=== PATIENT | male | born 1965 | race Caucasian/White ===

== ENCOUNTER 2020-06-12 10:30 | Inpatient (IN) ==
[2020-06-12] MEDS ORDERED: methylPREDNISolone SOD SUC 40 MG/1 ML VIAL IV STA (11:12)
[2020-06-12] MEDS ORDERED: ALBUTEROL/IPRATROPIUM 3 ML NEB RESP TX STA (11:12)
[2020-06-12] MEDS ORDERED: cefTRIAXone 1,000 MG in SODIUM CHLORIDE 0.9% 100 ML IV STA (11:30)
[2020-06-12] MEDS ORDERED: cefTRIAXone 1,000 MG VIAL ONE (11:31)
[2020-06-12 11:36] LABS: Basophils # 0.1 10*3/uL (0.0-0.2); Basophils % 0.3 % (0.0-0.8); Eosinophils # 0.1 10*3/uL (0.0-0.87); Eosinophils % 0.4 % (0.00-10.9); Hematocrit 46.6 VOL% (42.0-52.0); Hemoglobin 15.5 GM/DL (14.0-18.0); Immature Granulocytes Absolute 0.21 #; Lymphocytes # 2.1 10*3/uL (1.4-4.0); Lymphocytes % 9.6 % (21.2-54.2); Mean Corpuscular HGB Conc 33.3 GM/DL (32-36); Mean Corpuscular Volume 94.3 FL (87-102); Mean Platelet Volume 8.5 FL (9.6-12.0); Monocytes % 8.3 % (1.7-12.7); Neutrophils % 80.4 % (38.7-73.9); Platelet Count 418 T/CUMM (130-400); Red Blood Count 4.94 MC/CUMM (3.8-5.5); Red Cell Distribution Width 12.8 % (9.3-17.3); White Blood Count 21.8 T/CUMM (4-12)
[2020-06-12 11:57] LABS: Band Neutrophils 1 % (0-10); Eosinophils 1 % (0-10); Lymphocytes 10 % (20-55); Platelet Estimate Adequate; Segmented Neutrophils 78 % (50-85); Total Cells Counted 100
[2020-06-12 11:59] LABS: Albumin 2.9 G/DL (3.4-5.0); Bilirubin,Total 0.6 MG/DL (0.2-1.0); Calcium 9.6 MG/DL (8.5-10.1); Osmolality,Calculated 265.4 MOS/KG (273-304); Potassium 3.8 MMOL/L (3.5-5.1); Total Protein 8.9 G/DL (6.4-8.2)
[2020-06-12] MEDS ORDERED: AZITHROMYCIN 250 MG TABLET PO STA (12:38)
[2020-06-12] MEDS ORDERED: hydrALAZINE 20 MG/1 ML VIAL IV PRN (14:03)
[2020-06-12] MEDS ORDERED: DEXTROSE 50% 25 GM/50 ML VIAL IV PRN (14:03)
[2020-06-12] MEDS ORDERED: ACETAMINOPHEN 325 MG TABLET PO PRN (14:03)
[2020-06-12] MEDS ORDERED: GLUCAGON 1 MG VIAL IM PRN (14:03)
[2020-06-12] MEDS ORDERED: ONDANSETRON 4 MG/2 ML VIAL IV PRN (14:03)
[2020-06-12 14:20] LABS: Ferritin 258.1 ng/ml (26-388)
[2020-06-12] MEDS ORDERED: NICOTINE 14 MG/24 HR PATCH TRANSDERM PRN (14:47)
[2020-06-12 15:02] LABS: VLDL CHOLESTEROL 21.6 MG/DL
[2020-06-12 15:11] LABS: Risk Ratio 5.27; Thyroid Stimulating Hormone 1.19 uIU/ml (0.358-3.74)
[2020-06-12] MEDS: SODIUM CHLORIDE 0.9% 1,000 ML IV SCH (15:20)
[2020-06-12] MEDS: ENOXAPARIN 40 MG/0.4 ML SYRINGE SUBCUT SCH (17:20)
[2020-06-12 17:25] VITALS: BP 135/87
[2020-06-12] MEDS ORDERED: ALBUTEROL/IPRATROPIUM 3 ML NEB RESP TX SCH (19:00)
[2020-06-13] MEDS: SODIUM CHLORIDE 0.9% 1,000 ML IV SCH ×3 (03:09→11:50)
[2020-06-13 04:41] LABS: Basophils % 0.2 % (0.0-0.8); Hemoglobin 14.8 GM/DL (14.0-18.0); Immature Granulocytes % 1.6 %; Immature Granulocytes Absolute 0.25 #; Lymphocytes # 2.4 10*3/uL (1.4-4.0); Lymphocytes % 15.1 % (21.2-54.2); Mean Corpuscular HGB Conc 32.9 GM/DL (32-36); Mean Corpuscular Volume 94.7 FL (87-102); Mean Platelet Volume 8.5 FL (9.6-12.0); Monocytes % 7.4 % (1.7-12.7); Neutrophils % 75.7 % (38.7-73.9); Platelet Count 441 T/CUMM (130-400); Red Blood Count 4.75 MC/CUMM (3.8-5.5); Red Cell Distribution Width 12.7 % (9.3-17.3); White Blood Count 15.9 T/CUMM (4-12)
[2020-06-13 05:06] LABS: Calcium 9.2 MG/DL (8.5-10.1); Osmolality,Calculated 273.8 MOS/KG (273-304); Potassium 4.4 MMOL/L (3.5-5.1)
[2020-06-13] MEDS: PANTOPRAZOLE 40 MG TABLET PO SCH (08:11)
[2020-06-13] MEDS: ALBUTEROL INHALER 18 GM INH SCH ×4 (08:38→18:01)
[2020-06-13] MEDS: methylPREDNISolone SOD SUC 40 MG/1 ML VIAL IV SCH ×2 (09:45→16:16)
[2020-06-13] MEDS: cefTRIAXone 1,000 MG in SYRINGE 1 EACH IV SCH (13:10)
[2020-06-13] MEDS: AZITHROMYCIN INJ 500 MG in SODIUM CHLORIDE 0.9% 250 ML IV SCH (13:39)
[2020-06-13] MEDS: ENOXAPARIN 40 MG/0.4 ML SYRINGE SUBCUT SCH (15:11)
[2020-06-14] MEDS: methylPREDNISolone SOD SUC 40 MG/1 ML VIAL IV SCH ×3 (00:26→17:28)
[2020-06-14] MEDS: ALBUTEROL INHALER 18 GM INH SCH ×4 (00:26→18:30)
[2020-06-14 05:06] LABS: Basophils % 0.2 % (0.0-0.8); Hematocrit 42.5 VOL% (42.0-52.0); Hemoglobin 14.3 GM/DL (14.0-18.0); Immature Granulocytes % 1.5 %; Immature Granulocytes Absolute 0.21 #; Lymphocytes # 1.6 10*3/uL (1.4-4.0); Lymphocytes % 11.5 % (21.2-54.2); Mean Corpuscular HGB Conc 33.6 GM/DL (32-36); Mean Corpuscular Volume 94.2 FL (87-102); Mean Platelet Volume 8.8 FL (9.6-12.0); Monocytes % 2.3 % (1.7-12.7); Neutrophils % 84.5 % (38.7-73.9); Platelet Count 449 T/CUMM (130-400); Red Blood Count 4.51 MC/CUMM (3.8-5.5); Red Cell Distribution Width 12.5 % (9.3-17.3); White Blood Count 13.7 T/CUMM (4-12)
[2020-06-14 05:42] LABS: Calcium 8.7 MG/DL (8.5-10.1); Potassium 4.8 MMOL/L (3.5-5.1)
[2020-06-14 05:53] LABS: Alanine Aminotransferase 30 U/L (16-61); Albumin 2.5 G/DL (3.4-5.0); Alkaline Phosphatase 111 U/L (45-117); Aspartate Amino Transferase 31 U/L (0-37); Bilirubin,Total < 0.39 MG/DL (0.2-1.0); Blood Urea Nitrogen 18 MG/DL (7-18); Calcium 8.8 MG/DL (8.5-10.1); Carbon Dioxide 27 MMOL/L (21-32); Estimated Glom Filtration Rate 107 ML/MIN; Glucose 123 MG/DL (74-106); Potassium 5.2 MMOL/L (3.5-5.1); Sodium 136 MMOL/L (136-145); Total Protein 6.8 G/DL (6.4-8.2)
[2020-06-14] MEDS: PANTOPRAZOLE 40 MG TABLET PO SCH (08:23)
[2020-06-14 11:17] LABS: ABG Base Excess 2.1 MMOL/L (-2.5-2.5); ABG HCO3 26.3 MMOL/L (20-26); ABG Oxygen Saturation 96.6 % (95-100); ABG PCO2 39.5 MM HG (35-48); ABG PH 7.433 (7.35-7.45); ABG PO2 88.6 MM HG (80-95); ABG TCO2 22.4 MMOL/L (23-27); Allen Test Positive
[2020-06-14] MEDS: cefTRIAXone 1,000 MG in SYRINGE 1 EACH IV SCH (12:27)
[2020-06-14] MEDS: AZITHROMYCIN INJ 500 MG in SODIUM CHLORIDE 0.9% 250 ML IV SCH (12:29)
[2020-06-14] MEDS: ENOXAPARIN 40 MG/0.4 ML SYRINGE SUBCUT SCH (15:30)
[2020-06-14 21:16] LABS: QuantiFERON-Tb Gold Pl Negative (Negative); TB2 Ag Minus Result 0.04 IU/mL
[2020-06-15] MEDS: ALBUTEROL INHALER 18 GM INH SCH ×3 (00:30→13:14)
[2020-06-15] MEDS: methylPREDNISolone SOD SUC 40 MG/1 ML VIAL IV SCH ×2 (00:30→08:07)
[2020-06-15 06:05] LABS: Basophils % 0.2 % (0.0-0.8); Hemoglobin 14.4 GM/DL (14.0-18.0); Immature Granulocytes % 1.3 %; Immature Granulocytes Absolute 0.22 #; Lymphocytes # 1.6 10*3/uL (1.4-4.0); Lymphocytes % 9.5 % (21.2-54.2); Mean Corpuscular HGB Conc 32.7 GM/DL (32-36); Mean Corpuscular Volume 95.7 FL (87-102); Mean Platelet Volume 8.4 FL (9.6-12.0); Monocytes % 2.9 % (1.7-12.7); Neutrophils % 86.1 % (38.7-73.9); Platelet Count 473 T/CUMM (130-400); Red Cell Distribution Width 12.3 % (9.3-17.3); White Blood Count 17.2 T/CUMM (4-12)
[2020-06-15 06:23] LABS: Calcium 9.3 MG/DL (8.5-10.1); Osmolality,Calculated 270.2 MOS/KG (273-304); Potassium 5.1 MMOL/L (3.5-5.1)
[2020-06-15] MEDS: PANTOPRAZOLE 40 MG TABLET PO SCH (08:07)
[2020-06-15] MEDS: cefTRIAXone 1,000 MG in SYRINGE 1 EACH IV SCH (11:03)
[2020-06-15] MEDS: AZITHROMYCIN INJ 500 MG in SODIUM CHLORIDE 0.9% 250 ML IV SCH (11:08)
[2020-06-15] MEDS ORDERED: ALBUTEROL/IPRATROPIUM 3 ML NEB RESP TX ONE ×2 (11:26→11:48)
== END 2020-06-15 13:35 | disposition home or self-care (01) | DRG 194 ==
LOC: N.ED 10:30 → N.EDINP 13:22 → N.5E 15:46 → N.CC 17:16
PROVIDERS: ADMIT Internal Medicine; ATTEND Internal Medicine

== ENCOUNTER 2022-02-04 18:34 | Inpatient (IN) ==
[2022-02-04 19:38] LABS: Basophils # 0.1 10*3/uL (0.0-0.2); Basophils % 0.3 % (0.0-0.8); Eosinophils # 0.1 10*3/uL (0.0-0.87); Eosinophils % 0.5 % (0.00-10.9); Hematocrit 38.3 VOL% (42.0-52.0); Hemoglobin 12.8 GM/DL (14.0-18.0); Immature Granulocytes Absolute 0.22 #; Lymphocytes # 2.7 10*3/uL (1.4-4.0); Mean Corpuscular HGB Conc 33.4 GM/DL (32-36); Mean Corpuscular Volume 92.3 FL (87-102); Mean Platelet Volume 8.8 FL (9.6-12.0); Monocytes # 1.4 10*3/uL (0.11-0.8); Monocytes % 5.9 % (1.7-12.7); Neutrophils % 80.3 % (38.7-73.9); Platelet Count 435 T/CUMM (130-400); Red Blood Count 4.15 MC/CUMM (3.8-5.5); Red Cell Distribution Width 13.1 % (9.3-17.3); White Blood Count 22.8 T/CUMM (4-12)
[2022-02-04 20:02] LABS: Band Neutrophils 2 % (0-10); Eosinophils 2 % (0-10); Lymphocytes 13 % (20-55); Total Cells Counted 100
[2022-02-04 20:03] LABS: Platelet Estimate Increased
[2022-02-04] MEDS ORDERED: ALBUTEROL/IPRATROPIUM 3 ML NEB RESP TX STA (20:04)
[2022-02-04] MEDS ORDERED: PIPERACILLIN/TAZOBACTAM 3,375 MG in SODIUM CHLORIDE 0.9% 100 ML IV STA (20:04)
[2022-02-04] MEDS ORDERED: methylPREDNISolone SOD SUC 125 MG/2 ML VIAL IV STA (20:04)
[2022-02-04] MEDS ORDERED: ASPIRIN 325 MG TABLET PO STA (20:04)
[2022-02-04] MEDS ORDERED: SODIUM CHLORIDE 0.9% 500 ML IV STA (20:04)
[2022-02-04] MEDS ORDERED: ONDANSETRON 4 MG/2 ML VIAL IV STA (20:04)
[2022-02-04 20:10] LABS: Alanine Aminotransferase 81 U/L (16-61); Albumin 1.9 G/DL (3.4-5.0); Alkaline Phosphatase 134 U/L (45-117); Aspartate Amino Transferase 74 U/L (0-37); Bilirubin,Total < 0.39 MG/DL (0.20-1.00); Blood Urea Nitrogen 12 MG/DL (7-18); Calcium 8.2 MG/DL (8.5-10.1); Carbon Dioxide 27 MMOL/L (21-32); Chloride 97 MMOL/L (98-107); Glucose 113 MG/DL (74-106); Osmolality,Calculated 262.7 MOS/KG (273-304); Sodium 131 MMOL/L (136-145); Total Protein 7.9 G/DL (6.4-8.2)
[2022-02-04 20:26] LABS: Arterial Base Excess iSTAT 3 MMOL/L (-2.5-2.5); Arterial Bicarbonate iSTAT 28.1 MMOL/L (20-26); Arterial O2 Saturation iSTAT 96 % (95-100); Arterial PCO2 iSTAT 45 MM HG (35-48); Arterial PO2 iSTAT 81 MM HG (80-95); Arterial Total CO2 iSTAT 29 MMO/L (23-27); Arterial pH iSTAT 7.406 (7.35-7.45)
[2022-02-04] MEDS ORDERED: ALBUTEROL NEB SOLN 5 MG/ML 20 ML/BOTTLE CONT NEB SCH (20:30)
[2022-02-04 22:47] LABS: Mucus,Urine Occasional /LPF (Occasional); RBC,Urine <1 /HPF (0-4)
[2022-02-04 22:51] LABS: Bilirubin,Urine Negative (Negative); Blood, Urine Negative (Negative); Glucose,Urine (UA) Negative (Negative); Ketones,Urine Negative (Negative); Nitrite,Urine Negative (Negative); Protein,Urine Negative (Negative); Urine Appearance Clear (Clear); Urine Color Yellow (Yellow); Urine Specific Gravity 1.015 (1.001-1.035); Urine Urobilinogen >= 8.0 eU/dL (<2.0)
[2022-02-04 22:59] LABS: Barbiturates Screen,Urine Negative (Negative); Benzodiazepines Screen,Urine Negative (Negative); Cannabinoid Screen,Urine Negative (Negative); Opiate Screen,Urine Negative (Negative); Phencyclidine Screen,Urine Negative (Negative)
[2022-02-04] MEDS ORDERED: ACETAMINOPHEN 325 MG TABLET PO PRN (23:52)
[2022-02-04] MEDS ORDERED: NICOTINE 21 MG/24 HR PATCH TRANSDERM PRN (23:52)
[2022-02-04] MEDS ORDERED: hydrALAZINE 20 MG/1 ML VIAL IV PRN (23:52)
[2022-02-04] MEDS ORDERED: ONDANSETRON 4 MG/2 ML VIAL IV PRN (23:52)
[2022-02-04] MEDS ORDERED: diphenhydrAMINE CAP 25 MG CAPSULE PO PRN (23:52)
[2022-02-05] MEDS: ALBUTEROL/IPRATROPIUM 3 ML NEB RESP TX SCH ×6 (00:30→22:50)
[2022-02-05] MEDS: ENOXAPARIN 40 MG/0.4 ML SYRINGE SUBCUT SCH ×2 (01:26→08:53)
[2022-02-05] MEDS: ZALEPLON 5 MG CAPSULE PO PRN ×2 (01:54→21:19)
[2022-02-05] MEDS: AZITHROMYCIN INJ 500 MG in SODIUM CHLORIDE 0.9% 250 ML IV SCH (01:54)
[2022-02-05] MEDS: methylPREDNISolone SOD SUC 125 MG/2 ML VIAL IV SCH ×4 (02:49→22:54)
[2022-02-05] MEDS: PIPERACILLIN/TAZOBACTAM 3,375 MG in SODIUM CHLORIDE 0.9% 100 ML IV SCH ×3 (05:00→21:28)
[2022-02-05 05:18] LABS: Basophils % 0.2 % (0.0-0.8); Hematocrit 37.9 VOL% (42.0-52.0); Hemoglobin 12.1 GM/DL (14.0-18.0); Immature Granulocytes % 1.1 %; Immature Granulocytes Absolute 0.16 #; Lymphocytes # 0.9 10*3/uL (1.4-4.0); Lymphocytes % 5.8 % (21.2-54.2); Mean Corpuscular HGB Conc 31.9 GM/DL (32-36); Mean Corpuscular Volume 95.5 FL (87-102); Monocytes # 0.1 10*3/uL (0.11-0.8); Monocytes % 0.7 % (1.7-12.7); Neutrophils % 92.2 % (38.7-73.9); Platelet Count 381 T/CUMM (130-400); Red Blood Count 3.97 MC/CUMM (3.8-5.5); White Blood Count 15.1 T/CUMM (4-12)
[2022-02-05 05:46] LABS: Eosinophils 1 % (0-10); Lymphocytes 1 % (20-55); Platelet Estimate Adequate; Total Cells Counted 100
[2022-02-05 08:43] LABS: Arterial Base Excess iSTAT -1 MMOL/L (-2.5-2.5); Arterial Bicarbonate iSTAT 25.2 MMOL/L (20-26); Arterial O2 Saturation iSTAT 90 % (95-100); Arterial PCO2 iSTAT 45 MM HG (35-48); Arterial PO2 iSTAT 62 MM HG (80-95); Arterial Total CO2 iSTAT 27 MMO/L (23-27); Arterial pH iSTAT 7.361 (7.35-7.45)
[2022-02-05] MEDS ORDERED: PANTOPRAZOLE 40 MG TABLET PO SCH (09:00)
[2022-02-05] MEDS: NICOTINE 21 MG/24 HR PATCH TRANSDERM SCH (14:19)
[2022-02-05] MEDS ORDERED: ALUMINUM/MAGNES/SIMETH MAX STR 30 ML UDCUP PO PRN (17:32)
[2022-02-05] MEDS ORDERED: PANTOPRAZOLE 40 MG VIAL IV ONE (23:00)
[2022-02-06] MEDS: AZITHROMYCIN INJ 500 MG in SODIUM CHLORIDE 0.9% 250 ML IV SCH (01:46)
[2022-02-06] MEDS: ALBUTEROL/IPRATROPIUM 3 ML NEB RESP TX SCH ×6 (03:35→22:35)
[2022-02-06] MEDS: PIPERACILLIN/TAZOBACTAM 3,375 MG in SODIUM CHLORIDE 0.9% 100 ML IV SCH ×3 (05:18→22:19)
[2022-02-06] MEDS: methylPREDNISolone SOD SUC 125 MG/2 ML VIAL IV SCH ×4 (05:29→22:22)
[2022-02-06 06:01] LABS: Basophils # 0.1 10*3/uL (0.0-0.2); Basophils % 0.2 % (0.0-0.8); Hematocrit 38.2 VOL% (42.0-52.0); Hemoglobin 12.6 GM/DL (14.0-18.0); Immature Granulocytes % 2.3 %; Immature Granulocytes Absolute 0.57 #; Lymphocytes # 1.7 10*3/uL (1.4-4.0); Lymphocytes % 6.9 % (21.2-54.2); Mean Corpuscular Volume 94.6 FL (87-102); Mean Platelet Volume 9.2 FL (9.6-12.0); Monocytes # 0.9 10*3/uL (0.11-0.8); Monocytes % 3.4 % (1.7-12.7); Neutrophils % 87.2 % (38.7-73.9); Platelet Count 418 T/CUMM (130-400); Red Blood Count 4.04 MC/CUMM (3.8-5.5); Red Cell Distribution Width 12.9 % (9.3-17.3); White Blood Count 25.2 T/CUMM (4-12)
[2022-02-06 06:19] LABS: Calcium 8.7 MG/DL (8.5-10.1); Osmolality,Calculated 279.5 MOS/KG (273-304); Potassium 4.4 MMOL/L (3.5-5.1)
[2022-02-06 06:28] LABS: Lymphocytes 7 % (20-55); Platelet Estimate Increased; Total Cells Counted 100
[2022-02-06] MEDS: ENOXAPARIN 40 MG/0.4 ML SYRINGE SUBCUT SCH (09:02)
[2022-02-06] MEDS: NICOTINE 21 MG/24 HR PATCH TRANSDERM SCH (09:02)
[2022-02-06] MEDS: PANTOPRAZOLE 40 MG VIAL IV SCH (09:06)
[2022-02-06] MEDS ORDERED: ALBUTEROL 2.5 MG/3 ML NEB RESP TX ONE ×3 (11:27→22:13)
[2022-02-06] MEDS: amLODIPine 5 MG TABLET PO SCH (15:38)
[2022-02-06] MEDS ORDERED: IPRATROPIUM 500 MCG/2.5 ML NEB RESP TX ONE ×2 (19:13→22:12)
[2022-02-07] MEDS ORDERED: ALBUTEROL 2.5 MG/3 ML NEB RESP TX ONE (01:14)
[2022-02-07] MEDS ORDERED: IPRATROPIUM 500 MCG/2.5 ML NEB RESP TX ONE (01:14)
[2022-02-07] MEDS: AZITHROMYCIN INJ 500 MG in SODIUM CHLORIDE 0.9% 250 ML IV SCH ×2 (01:52→23:57)
[2022-02-07] MEDS: ALBUTEROL/IPRATROPIUM 3 ML NEB RESP TX SCH ×5 (02:28→19:04)
[2022-02-07] MEDS: methylPREDNISolone SOD SUC 125 MG/2 ML VIAL IV SCH (04:43)
[2022-02-07] MEDS: PIPERACILLIN/TAZOBACTAM 3,375 MG in SODIUM CHLORIDE 0.9% 100 ML IV SCH ×3 (04:44→20:11)
[2022-02-07 06:11] LABS: Basophils % 0.1 % (0.0-0.8); Hematocrit 41.7 VOL% (42.0-52.0); Hemoglobin 13.5 GM/DL (14.0-18.0); Immature Granulocytes % 1.2 %; Lymphocytes # 1.2 10*3/uL (1.4-4.0); Lymphocytes % 6.9 % (21.2-54.2); Mean Corpuscular HGB Conc 32.4 GM/DL (32-36); Mean Corpuscular Volume 94.3 FL (87-102); Mean Platelet Volume 8.6 FL (9.6-12.0); Monocytes # 0.4 10*3/uL (0.11-0.8); Neutrophils % 89.8 % (38.7-73.9); Platelet Count 507 T/CUMM (130-400); Red Blood Count 4.42 MC/CUMM (3.8-5.5); Red Cell Distribution Width 13.2 % (9.3-17.3); White Blood Count 17.3 T/CUMM (4-12)
[2022-02-07 06:33] LABS: Osmolality,Calculated 277.7 MOS/KG (273-304)
[2022-02-07] MEDS: amLODIPine 5 MG TABLET PO SCH (08:48)
[2022-02-07] MEDS: NICOTINE 21 MG/24 HR PATCH TRANSDERM SCH (08:48)
[2022-02-07] MEDS: ENOXAPARIN 40 MG/0.4 ML SYRINGE SUBCUT SCH (08:49)
[2022-02-07] MEDS: PANTOPRAZOLE 40 MG VIAL IV SCH (08:52)
[2022-02-07] MEDS: FLUTICASONE/SALMETEROL 250-50 DISKUS 14 DOSE INH SCH ×2 (11:33→20:11)
[2022-02-07] MEDS: methylPREDNISolone SOD SUC 40 MG/1 ML VIAL IV SCH ×2 (13:31→20:10)
[2022-02-07] MEDS: ZALEPLON 5 MG CAPSULE PO PRN (20:10)
[2022-02-08] MEDS: MORPHINE 2 MG/1 ML SYRINGE IV PRN ×2 (00:04→09:03)
[2022-02-08] MEDS: guaiFENesin/DM ER 600-30 MG TABLET PO PRN ×3 (00:04→20:27)
[2022-02-08] MEDS ORDERED: ALBUTEROL 2.5 MG/3 ML NEB RESP TX ONE ×6 (00:41→19:00)
[2022-02-08] MEDS ORDERED: IPRATROPIUM 500 MCG/2.5 ML NEB RESP TX ONE ×6 (00:41→19:00)
[2022-02-08] MEDS: ALBUTEROL/IPRATROPIUM 3 ML NEB RESP TX SCH ×6 (00:51→19:07)
[2022-02-08] MEDS: methylPREDNISolone SOD SUC 40 MG/1 ML VIAL IV SCH ×3 (04:08→17:13)
[2022-02-08] MEDS: PIPERACILLIN/TAZOBACTAM 3,375 MG in SODIUM CHLORIDE 0.9% 100 ML IV SCH ×3 (04:08→20:25)
[2022-02-08 04:43] LABS: Basophils % 0.2 % (0.0-0.8); Hematocrit 40.6 VOL% (42.0-52.0); Hemoglobin 13.6 GM/DL (14.0-18.0); Immature Granulocytes % 1.4 %; Immature Granulocytes Absolute 0.18 #; Lymphocytes # 1.2 10*3/uL (1.4-4.0); Lymphocytes % 9.5 % (21.2-54.2); Mean Corpuscular HGB Conc 33.5 GM/DL (32-36); Mean Corpuscular Volume 92.9 FL (87-102); Mean Platelet Volume 8.7 FL (9.6-12.0); Monocytes # 0.5 10*3/uL (0.11-0.8); Monocytes % 4.2 % (1.7-12.7); Neutrophils % 84.7 % (38.7-73.9); Platelet Count 464 T/CUMM (130-400); Red Blood Count 4.37 MC/CUMM (3.8-5.5); Red Cell Distribution Width 13.1 % (9.3-17.3); White Blood Count 12.4 T/CUMM (4-12)
[2022-02-08 05:00] LABS: Calcium 8.4 MG/DL (8.5-10.1)
[2022-02-08] MEDS: amLODIPine 5 MG TABLET PO SCH (08:59)
[2022-02-08] MEDS: FLUTICASONE/SALMETEROL 250-50 DISKUS 14 DOSE INH SCH ×2 (09:00→20:25)
[2022-02-08] MEDS: ENOXAPARIN 40 MG/0.4 ML SYRINGE SUBCUT SCH (09:03)
[2022-02-08] MEDS: PANTOPRAZOLE 40 MG VIAL IV SCH (09:03)
[2022-02-08] MEDS: NICOTINE 21 MG/24 HR PATCH TRANSDERM SCH (09:03)
[2022-02-08] MEDS: MELOXICAM 7.5 MG TABLET PO SCH (10:39)
[2022-02-08] MEDS: oxyCODONE/ACETAMINOPHEN 5-325 MG TABLET PO PRN ×2 (10:40→19:35)
[2022-02-08] MEDS: ZALEPLON 5 MG CAPSULE PO PRN (20:27)
[2022-02-09] MEDS: AZITHROMYCIN INJ 500 MG in SODIUM CHLORIDE 0.9% 250 ML IV SCH (00:15)
[2022-02-09] MEDS: ALBUTEROL/IPRATROPIUM 3 ML NEB RESP TX SCH ×6 (02:44→21:12)
[2022-02-09] MEDS: PIPERACILLIN/TAZOBACTAM 3,375 MG in SODIUM CHLORIDE 0.9% 100 ML IV SCH ×3 (05:01→20:45)
[2022-02-09] MEDS: methylPREDNISolone SOD SUC 40 MG/1 ML VIAL IV SCH (05:01)
[2022-02-09 05:56] LABS: Basophils % 0.3 % (0.0-0.8); Hematocrit 44.4 VOL% (42.0-52.0); Hemoglobin 14.4 GM/DL (14.0-18.0); Immature Granulocytes % 2.4 %; Immature Granulocytes Absolute 0.34 #; Lymphocytes # 1.7 10*3/uL (1.4-4.0); Lymphocytes % 11.8 % (21.2-54.2); Mean Corpuscular HGB Conc 32.4 GM/DL (32-36); Mean Corpuscular Volume 92.9 FL (87-102); Mean Platelet Volume 8.6 FL (9.6-12.0); Monocytes # 0.9 10*3/uL (0.11-0.8); Monocytes % 6.5 % (1.7-12.7); Platelet Count 559 T/CUMM (130-400); Red Blood Count 4.78 MC/CUMM (3.8-5.5); Red Cell Distribution Width 13.2 % (9.3-17.3); White Blood Count 14.3 T/CUMM (4-12)
[2022-02-09 06:12] LABS: Calcium 8.6 MG/DL (8.5-10.1); Osmolality,Calculated 271.1 MOS/KG (273-304); Potassium 4.2 MMOL/L (3.5-5.1)
[2022-02-09] MEDS: amLODIPine 5 MG TABLET PO SCH (08:46)
[2022-02-09] MEDS: MELOXICAM 7.5 MG TABLET PO SCH (08:46)
[2022-02-09] MEDS: LOSARTAN 25 MG TABLET PO SCH (08:46)
[2022-02-09] MEDS: FLUTICASONE/SALMETEROL 250-50 DISKUS 14 DOSE INH SCH ×2 (08:47→20:45)
[2022-02-09] MEDS: NICOTINE 21 MG/24 HR PATCH TRANSDERM SCH (08:49)
[2022-02-09] MEDS: ENOXAPARIN 40 MG/0.4 ML SYRINGE SUBCUT SCH (08:50)
[2022-02-09] MEDS: PANTOPRAZOLE 40 MG VIAL IV SCH (08:51)
[2022-02-10] MEDS: ALBUTEROL/IPRATROPIUM 3 ML NEB RESP TX SCH ×6 (00:07→19:15)
[2022-02-10] MEDS: AZITHROMYCIN INJ 500 MG in SODIUM CHLORIDE 0.9% 250 ML IV SCH (01:04)
[2022-02-10 05:29] LABS: Basophils # 0.1 10*3/uL (0.0-0.2); Basophils % 0.5 % (0.0-0.8); Eosinophils # 0.1 10*3/uL (0.0-0.87); Eosinophils % 0.6 % (0.00-10.9); Hematocrit 46.4 VOL% (42.0-52.0); Immature Granulocytes % 3.9 %; Immature Granulocytes Absolute 0.62 #; Lymphocytes # 3.1 10*3/uL (1.4-4.0); Lymphocytes % 19.7 % (21.2-54.2); Mean Corpuscular HGB Conc 32.3 GM/DL (32-36); Mean Corpuscular Volume 93.7 FL (87-102); Mean Platelet Volume 8.2 FL (9.6-12.0); Monocytes # 1.4 10*3/uL (0.11-0.8); Monocytes % 8.9 % (1.7-12.7); Neutrophils % 66.4 % (38.7-73.9); Platelet Count 506 T/CUMM (130-400); Red Blood Count 4.95 MC/CUMM (3.8-5.5); Red Cell Distribution Width 13.2 % (9.3-17.3); White Blood Count 15.9 T/CUMM (4-12)
[2022-02-10] MEDS: PIPERACILLIN/TAZOBACTAM 3,375 MG in SODIUM CHLORIDE 0.9% 100 ML IV SCH ×3 (05:45→21:02)
[2022-02-10 05:50] LABS: Band Neutrophils 1 % (0-10); Eosinophils 2 % (0-10); Lymphocytes 18 % (20-55); Platelet Estimate Increased; Total Cells Counted 100
[2022-02-10 05:53] LABS: Calcium 8.4 MG/DL (8.5-10.1)
[2022-02-10] MEDS ORDERED: predniSONE 20 MG TABLET PO SCH (07:30)
[2022-02-10] MEDS ORDERED: methylPREDNISolone SOD SUC 40 MG/1 ML VIAL IV SCH (09:00)
[2022-02-10] MEDS: predniSONE 20 MG TABLET PO SCH ×2 (09:11→21:02)
[2022-02-10] MEDS: amLODIPine 5 MG TABLET PO SCH (09:11)
[2022-02-10] MEDS: FLUTICASONE/SALMETEROL 250-50 DISKUS 14 DOSE INH SCH ×2 (09:11→21:02)
[2022-02-10] MEDS: NICOTINE 21 MG/24 HR PATCH TRANSDERM SCH (09:11)
[2022-02-10] MEDS: LOSARTAN 25 MG TABLET PO SCH (09:12)
[2022-02-10] MEDS: MELOXICAM 7.5 MG TABLET PO SCH (09:12)
[2022-02-10] MEDS: PANTOPRAZOLE 40 MG VIAL IV SCH (09:12)
[2022-02-10] MEDS: GABAPENTIN 300 MG CAPSULE PO SCH ×2 (09:12→21:02)
[2022-02-10] MEDS: ENOXAPARIN 40 MG/0.4 ML SYRINGE SUBCUT SCH (09:12)
[2022-02-10] MEDS: LEVALBUTEROL 0.31 MG/3 ML NEB RESP TX SCH ×4 (10:02→21:03)
[2022-02-11] MEDS: ALBUTEROL/IPRATROPIUM 3 ML NEB RESP TX SCH ×4 (00:25→11:00)
[2022-02-11] MEDS: AZITHROMYCIN INJ 500 MG in SODIUM CHLORIDE 0.9% 250 ML IV SCH (01:01)
[2022-02-11] MEDS: LEVALBUTEROL 0.31 MG/3 ML NEB RESP TX SCH ×4 (01:24→10:46)
[2022-02-11] MEDS: PIPERACILLIN/TAZOBACTAM 3,375 MG in SODIUM CHLORIDE 0.9% 100 ML IV SCH ×2 (05:01→14:22)
[2022-02-11] MEDS: oxyCODONE/ACETAMINOPHEN 5-325 MG TABLET PO PRN (05:05)
[2022-02-11 07:30] LABS: Basophils % 0.3 % (0.0-0.8); Eosinophils % 0.1 % (0.00-10.9); Hematocrit 46.3 VOL% (42.0-52.0); Hemoglobin 14.9 GM/DL (14.0-18.0); Immature Granulocytes % 3.6 %; Immature Granulocytes Absolute 0.52 #; Lymphocytes # 2.3 10*3/uL (1.4-4.0); Lymphocytes % 16.1 % (21.2-54.2); Mean Corpuscular HGB Conc 32.2 GM/DL (32-36); Mean Corpuscular Volume 94.1 FL (87-102); Monocytes # 0.8 10*3/uL (0.11-0.8); Monocytes % 5.3 % (1.7-12.7); Neutrophils % 74.6 % (38.7-73.9); Platelet Count 469 T/CUMM (130-400); Red Blood Count 4.92 MC/CUMM (3.8-5.5); Red Cell Distribution Width 13.5 % (9.3-17.3); White Blood Count 14.3 T/CUMM (4-12)
[2022-02-11 07:46] LABS: Calcium 8.6 MG/DL (8.5-10.1); Osmolality,Calculated 276.7 MOS/KG (273-304); Potassium 4.8 MMOL/L (3.5-5.1)
[2022-02-11 07:49] LABS: Lymphocytes 17 % (20-55); Platelet Estimate Adequate; Total Cells Counted 100
[2022-02-11] MEDS: predniSONE 20 MG TABLET PO SCH (09:07)
[2022-02-11] MEDS: amLODIPine 5 MG TABLET PO SCH (09:07)
[2022-02-11] MEDS: MELOXICAM 7.5 MG TABLET PO SCH (09:07)
[2022-02-11] MEDS: LOSARTAN 25 MG TABLET PO SCH (09:07)
[2022-02-11] MEDS: NICOTINE 21 MG/24 HR PATCH TRANSDERM SCH (09:08)
[2022-02-11] MEDS: GABAPENTIN 300 MG CAPSULE PO SCH (09:08)
[2022-02-11] MEDS: ENOXAPARIN 40 MG/0.4 ML SYRINGE SUBCUT SCH (09:08)
[2022-02-11] MEDS: PANTOPRAZOLE 40 MG VIAL IV SCH (09:08)
[2022-02-11] MEDS: FLUTICASONE/SALMETEROL 250-50 DISKUS 14 DOSE INH SCH (09:09)
[2022-02-11] MEDS ORDERED: HydrOXYzine PAMOATE 25 MG CAPSULE PO PRN (10:34)
[2022-02-11 11:58] VITALS: BP 135/84
== END 2022-02-11 15:38 | disposition home or self-care (01) | DRG 194 ==
LOC: N.ED 18:34 → SUATTDRO 23:52 → N.EDINP 23:52 → N.TELEN 02-05 00:58
PROVIDERS: ADMIT Emergency Medicine; ATTEND Internal Medicine